=== PATIENT | female | born 1990 | race Caucasian/White ===

== ENCOUNTER 2017-04-12 18:45 | Emergency (ER) | payer OTHER ==
[~2017-04-12] VITALS: Ht 154.9 cm; Wt 68.2 kg
[~2017-04-12 18:45] MED LIST: CALC-649; FERR27TA; PREN1TAB49
[2017-04-12 18:47] VITALS: Ht 154.9 cm; Wt 68.2 kg
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
== END 2017-04-12 19:03 | disposition home or self-care (01) ==
LOC: E/R 18:45 → MERGE 18:45 → E/R 19:03
DX: O9A.212 Injury, poisoning and certain other consequences of external causes complicating pregnancy, second trimester (principal); S39.91XA Unspecified injury of abdomen, initial encounter; R40.2142 Coma scale, eyes open, spontaneous, at arrival to emergency department; R40.2252 Coma scale, best verbal response, oriented, at arrival to emergency department; R40.2362 Coma scale, best motor response, obeys commands, at arrival to emergency department; V49.40XA Driver injured in collision with unspecified motor vehicles in traffic accident, initial encounter; Z3A.22 22 weeks gestation of pregnancy
CPT/HCPCS: 99283

== ENCOUNTER 2017-04-12 19:09 | Outpatient (CLI) | payer OTHER ==
[~2017-04-12] VITALS: Ht 154.9 cm; Wt 69.6 kg
[2017-04-12 20:13] VITALS: Ht 154.9 cm; Wt 69.6 kg
[2017-04-12 20:45] VITALS: BP 112/63; PULSE 92; RESP 18
[2017-04-12 21:11] LABS: BASOPHILS % 0.2 % (0.0-2.0); EOSINOPHILS # 0.1 10^3/ul (0.0-0.5); EOSINOPHILS % 1.1 % (0.0-7.0); HEMATOCRIT 29.5 % (37.0-47.0); HEMOGLOBIN 10.3 g/dl (12.0-16.0); LYMPHOCYTES # 1.3 10^3/ul (0.8-2.9); LYMPHOCYTES % 15.5 % (15.0-51.0); MEAN CORPUSCULAR HEMOGLOBIN 31.2 pg (29.0-33.0); MEAN CORPUSCULAR HGB CONC 34.9 g/dl (32.0-37.0); MEAN CORPUSCULAR VOLUME 89.4 fl (82.0-101.0); MONOCYTE # 0.5 10^3/ul (0.3-0.9); MONOCYTES % 6.3 % (0.0-11.0); NEUTROPHILS % 76.7 % (39.0-77.0); PLATELET COUNT 221 10^3/UL (140-415); RED CELL DISTRIBUTION WIDTH 13.1 % (11.5-14.5); WHITE BLOOD COUNT 8.3 10^3/ul (4.8-10.8)
[2017-04-12 21:12] LABS: ADD UMIC YES; UR ASCORBIC ACID NEGATIVE (NEGATIVE); UR BILIRUBIN (Dip) NEGATIVE (NEGATIVE); UR BLOOD (Dip) NEGATIVE (NEGATIVE); UR CLARITY CLEAR (CLEAR); UR COLOR YELLOW (YELLOW); UR GLUCOSE (Dip) NEGATIVE (NEGATIVE); UR KETONES (Dip) NEGATIVE (NEGATIVE); UR LEUKOCYTE ESTERASE (Dip) TRACE Leu/ul (NEGATIVE); UR NITRITE (Dip) NEGATIVE (NEGATIVE); UR RBC 1 /HPF (0-5); UR SPECIFIC GRAVITY (Dip) 1.013 (1.003-1.030); UR SQUAMOUS EPITHELIAL CELL FEW /HPF (FEW); UR TOTAL PROTEIN (Dip) NEGATIVE (NEGATIVE); UR UROBILINOGEN (Dip) NEGATIVE (NEGATIVE)
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
== END 2017-04-12 23:13 | disposition home or self-care (01) ==
LOC: OBT 19:09 → MERGE 19:09 → L-D 19:12 → OBT 23:13
PROVIDERS: ATTEND Obstetrics & Gynecology
DX: O26.892 Other specified pregnancy related conditions, second trimester (principal); Z3A.22 22 weeks gestation of pregnancy; R10.2 Pelvic and perineal pain
CPT/HCPCS: 36415; 76815; 76817; 81001; 85025; 85460; 86900; 86901; Z7500; G0463

== ENCOUNTER 2018-07-08 17:21 | Emergency (ER) | END 2018-07-08 21:10 | disposition home or self-care (01) ==

== ENCOUNTER 2018-10-10 16:13 | Emergency (ER) | payer OTHER ==
[~2018-10-10] VITALS: Ht 160 cm; Wt 65.1 kg
[~2018-10-10 16:13] MED LIST changes: +IBUP-1542 PO
[2018-10-10 16:26] VITALS: BP 129/62; PULSE 90; RESP 18; Ht 160 cm; Wt 65.1 kg
--- NOTE | 2018-10-11 03:35 | ERD ---
ER Documentation Chief Complaint Chief Complaint vaginal bleed x 4 days, LMP 08/04/18 HPI 28 year-old [female] coming in today with Chief Complaint: Vaginal bleeding during History of Present Illness: female coming in today with complaint of spotting that started 4 days ago, that has increased to a light period. Associated symptoms include abdominal cramping. Denies any other complaints. Review of systems: All systems were reviewed and are negative except for what is indicated in the history of present illness. Past Medical History: [Negative for hypertension, diabetes or other medical problems]; past surgical history includes Social History: [Patient denies tobacco, alcohol, elicit drug use] Medications: [None] Allergies: [NKDA] Social Concerns: Denies ROS All systems reviewed and are negative except as per history of present illness. Medications Home Meds Active Scripts Ibuprofen* (Motrin*) 600 Mg Tab, 600 MG PO Q6H PRN for PAIN AND OR ELEVATED TEMP, #30 TAB Prov:BRENDA OCAMPO CORE DIPPER 07/08/18 Reported Medications Calcium Carbonate (Calcium) 1 Tab Tablet 08/02/10 Ferrous Sulfate (Iron) 1 Tab Tablet 08/02/10 Vits W-Ca,Fe,Fa(<1MG) () 1 Tab Tablet 08/02/10 [None] No Conflict Check 01/20/10 Allergies Allergies: Coded Allergies: No Known Drug Allergies (Verified Allergy, Mild, 08/02/10) PMhx/Soc History of Surgery: Yes () Anesthesia Reaction: No Hx Neurological Disorder: No Hx Respiratory Disorders: No Hx Cardiac Disorders: No Hx Psychiatric Problems: No Hx Miscellaneous Medical Probl: No Hx Alcohol Use: No Hx Substance Use: No Hx Tobacco Use: No Smoking Status: Never smoker FmHx Family History: diabetes; No coronary disease Physical Exam Vitals Vital Signs Date Temp Pulse Resp B/P (MAP) Pulse Ox O2 O2 Flow FiO2 Time Delivery Rate 10/10/18 98.0 90 18 129/62 99 16:26 (84) Physical Exam Const: No acute distress Head: Atraumatic Eyes: Normal Conjunctiva ENT: Normal External Ears, Nose and Mouth. Neck: Full range of motion. No meningismus. Resp: Clear to auscultation bilaterally Cardio: Regular rate and rhythm, no murmurs Abd: Soft, non tender, non distended. Normal bowel sounds Skin: No petechiae or rashes Back: No midline or flank tenderness Ext: No cyanosis, or edema Neur: Awake and alert Psych: Normal Mood and Affect Vaginal exam deferred. Patient refused. Results 24 hrs Laboratory Tests Test 10/10/18 18:39 10/10/18 18:41 Beta HCG, Quantitative 4462.4 mIU/ml Urine Color YELLOW Urine Clarity SLIGHTLY CLOUDY Urine pH 6.0 Urine Specific Lamar 1.026 Urine Ketones NEGATIVE mg/dL Urine Nitrite NEGATIVE mg/dL Urine Bilirubin NEGATIVE mg/dL Urine Urobilinogen 1+ mg/dL Urine Leukocyte Esterase 2+ Sunny/ul Urine Microscopic RBC 2 /HPF Urine Microscopic WBC 9 /HPF Urine Squamous Epithelial Cells MODERATE /HPF Urine Bacteria FEW /HPF Urine Mucus FEW /HPF Urine Hemoglobin NEGATIVE mg/dL Urine Glucose NEGATIVE mg/dL Urine Total Protein NEGATIVE mg/dl Procedures/MDM Patient with complaint of bleeding during ED course includes a thorough examination and history. ED course also includes labs and ultrasound. Otherwise healthy patient presenting with constellation of symptoms likely representing vaginal bleeding as characterized by history, physical exam findings [, radiologic/lab findings]. No respiratory distress, otherwise relatively well appearing and nontoxic. ED reassessment 2039: Ultrasound completed, results pending. Patient reports due to weight she will be leaving facility. Risk and benefits explained. Upon reassessment, patient eloped. -------- Ultrasound impression received after patient eloped: IMPRESSION: 1. A gestational sac is implanted within the fundus of the uterus the size of the average gestational sac at 5 weeks 0 days plus or minus 1 week. No yolk sac or pole is identified. A repeat sonogram in 7-10 days may be useful to further evaluate and determine whether this represents an early live intrauterine gestation. 2. Normal appearing ovaries with each demonstrating vascular flow on Doppler. 3. There is a trace of free intraperitoneal fluid. 4. No adnexal mass is evident. ---- Patient reporting last menstrual period was August 04, 2018. Ultrasound showing 5 weeks gestation. Ultrasound gestational sac size and last menstrual period dates are not matching. Unable to determine if this is threatened miscarriage. Departure Diagnosis: Primary Impression: Threatened miscarriage Additional Impression: Vaginal bleeding in patient at less than 20 weeks ges... Condition: Fair SUSANA LEONG NP Oct 11, 2018 03:34
== END 2018-10-10 20:53 | disposition left against medical advice (07) ==
LOC: FTE 16:13
DX: O20.0 Threatened abortion (principal); Z3A.01 Less than 8 weeks gestation of pregnancy
CPT/HCPCS: 36415; 76801; 76817; 81001; 84702; Z7502